=== PATIENT | female | born 1980 | race Caucasian/White ===

== ENCOUNTER 2017-02-18 01:56 | Emergency (ER) | payer MEDICAID ==
[2017-02-18 02:00] VITALS: BP 117/70
[2017-02-18] MEDS ORDERED: IBUPROFEN 600 MG TABLET PO ONE (02:44)
[2017-02-18] MEDS ORDERED: LIDOCAINE 5% (700 MG) TRANSDERMAL ADH..PATCH TP ONE (02:44)
--- NOTE | 2017-02-18 03:16 | RADIOLOGY REPORT (SQ) ---
EXAM DESCRIPTION: CHEST PA/LAT COMPLETED DATE/TIME: 02/18/2017 3:04 am REASON FOR STUDY: rib pain COMPARISON: None. EXAM PARAMETERS: NUMBER OF VIEWS: two views TECHNIQUE: Digital Frontal and Lateral radiographic views of the chest acquired. RADIATION DOSE: NA LIMITATIONS: none FINDINGS: LUNGS AND PLEURA: No opacities, masses or pneumothorax. No pleural effusion. MEDIASTINUM AND HILAR STRUCTURES: No masses or contour abnormalities. HEART AND VASCULAR STRUCTURES: Heart normal size. No evidence for failure. BONES: No acute findings. HARDWARE: None in the chest. OTHER: No other significant finding. IMPRESSION: NO SIGNIFICANT RADIOGRAPHIC FINDING IN THE CHEST. TECHNICAL DOCUMENTATION: JOB ID: [id number] [email or web address]- All Rights Reserved
--- NOTE | 2017-02-18 03:38 | ER Document Report ---
ED General - General Chief Complaint: Rib Pain Stated Complaint: RIB PAIN Time Seen by Provider: 02/18/17 02:43 Notes: Patient is a 36-year-old female who presents after falling out of her bathtub striking her right ribs after she fell out of her tub hitting her right lower ribs on a toilet. States that since that time she has had a severe, constant, throbbing pain to the area. Worsened by movement or breathing. Denies a history of similar injury in the past. She has not tried anything to improve her pain. She denies any hemoptysis, shortness of breath, head or neck trauma. She has not seen her primary doctor regarding today's concerns. Denies any additional injuries or concerns. TRAVEL OUTSIDE OF THE [place] IN LAST 30 DAYS: No - Related Data Allergies/Adverse Reactions: sumatriptan [From Imitrex] Allergy (Verified 02/18/17 01:58) Home Medications: Current Home Medications Alprazolam [Xanax 0.5 mg Tablet] ASDIR PRN 02/18/17 [History] Amphetamine Sulfate [Evekeo] 20 mg PO QAM 02/18/17 [History] Gabapentin [Gabapentin] ASDIR PRN 02/18/17 [History] Rizatriptan Benzoate [Rizatriptan] ASDIR PRN 02/18/17 [History] Sertraline HCl [Sertraline HCl] ASDIR PRN 02/18/17 [History] Tizanidine HCl [Tizanidine HCl] ASDIR PRN 02/18/17 [History] Tramadol HCl [Tramadol HCl] ASDIR PRN 02/18/17 [History] Zolpidem Tartrate [Zolpidem Tartrate ER] 12.5 mg PO QHS 02/18/17 [History] Past Medical History - General Information source: Patient - Social History Smoking Status: Current Every Day Smoker Frequency of alcohol use: None Drug Abuse: None Family History: Reviewed & Not Pertinent Patient has suicidal ideation: No Patient has homicidal ideation: No Renal/ Medical History: Denies: Hx Peritoneal Dialysis Past Surgical History: Reports: Hx Section Review of Systems - Review of Systems Notes: Constitutional: Negative for fever. Eyes: Negative for visual changes. ENT: Negative for facial injury Cardiovascular: Positive for chest injury. Respiratory: Negative for shortness of breath. Gastrointestinal: Negative for abdominal injury. Genitourinary: Negative for genital injury Musculoskeletal: Negative for back injury. Skin: Negative for laceration/abrasions. Neurological: Negative for head injury. Physical Exam - Vital signs Vitals: Temp Pulse Resp BP Pulse Ox 99.0 F 70 18 117/70 98 02/18/17 01:58 02/18/17 01:58 02/18/17 01:58 02/18/17 01:58 02/18/17 01:58 Interpretation: Normal Notes: PHYSICAL EXAMINATION: GENERAL: Well-appearing, no acute distress. HEAD: Atraumatic, normocephalic. EYES: Pupils equal round and reactive to light, extraocular movements intact, sclera anicteric, conjunctiva are normal. ENT: nares patent, no oral pharyngeal trauma. No hemotympanum, no Alexandre's sign , no raccoon eyes. NECK: No midline cervical spine tenderness. Patient able to move their head to 45 bilaterally without any discomfort. LUNGS: Breath sounds clear to auscultation bilaterally and equal. No wheezes rales or rhonchi. HEART: Regular rate and rhythm without murmurs. CHEST WALL: No bruising over the lower right ribs. Pain on palpation of the affected area ABDOMEN: Soft, nontender, normoactive bowel sounds. No guarding, no rebound. No abdominal bruising EXTREMITIES: Normal range of motion, no pitting or edema. No long bone deformities. BACK: No midline spinal tenderness, step-offs, or deformities. NEUROLOGICAL: Moves all extremities spontaneously and on command PSYCH: Normal mood, normal affect. SKIN: Warm, Dry, normal turgor, no rashes or lesions noted. Course - Re-evaluation Re-evalutation: 02/18/17 03:37 Patient presents after falling onto their ribs, complaining of focal pain to the affected area. No tachypnea or hypoxemia at time of arrival. Pain controlled here in the emergency department with narcotic and anti-inflammatory analgesics. Chest x-ray without evidence of acute fracture, pneumothorax or pulmonary contusion. At this time will discharge with return precautions and follow-up recommendations. Verbal discharge instructions given at the bedside and opportunity for questions given. Medication warnings reviewed. Patient is in agreement with this plan and has verbalized understanding of return precautions and the need for primary care follow-up in the next 24-72 hours. - Vital Signs Vital signs: Temp Pulse Resp BP Pulse Ox 99.0 F 70 18 117/70 98 02/18/17 01:58 02/18/17 01:58 02/18/17 01:58 02/18/17 01:58 02/18/17 01:58 - Diagnostic Test Radiology reviewed: Image reviewed, Reports reviewed Radiology results interpreted by me: 02/18/17 03:50 Chest x-ray: No acute rib fractures or pneumothorax Discharge - Discharge Clinical Impression: Rib pain Condition: Good Disposition: HOME, SELF-CARE Additional Instructions: Your chest wall pain is due to bruising of your ribs. This pain can last for up to 6 weeks. It is very important that you continue to take purposeful deep breaths. For your pain: Continue to take ibuprofen 600 mg every 6 hours or Tylenol 1000 mg every 6 hours. Apply local lidocaine to the area per bottle instructions. There is a product sold [id number] called "Aspercreme with lidocaine" that you can use for this purpose. Please follow-up with her primary care doctor in the next 2-3 days. Return to the emergency department immediately if you develop worsening shortness of breath, increased pain, begin coughing blood, pass out, or have any other symptoms that are worrisome to you. Referrals: ANDREA CID, [Primary Care Provider] - Follow up as needed
[2017-02-18] MEDS ORDERED: MORPHINE SULFATE IR 15 MG TABLET PO ONE (03:47)
[2017-02-18] MEDS ORDERED: ACETAMINOPHEN 325 MG TABLET PO ONE (03:47)
== END 2017-02-18 03:54 | disposition home or self-care (01) ==
LOC: ER 01:56
DX: R07.81 Pleurodynia (principal); F17.200 Nicotine dependence, unspecified, uncomplicated; W01.10XA Fall on same level from slipping, tripping and stumbling with subsequent striking against unspecified object, initial encounter; Y93.E1 Activity, personal bathing and showering; Y92.009 Unspecified place in unspecified non-institutional (private) residence as the place of occurrence of the external cause
CPT/HCPCS: 99283; 71020; J3490 ×3

== ENCOUNTER 2017-05-15 03:24 | Emergency (ER) | payer MEDICAID ==
[2017-05-15] MEDS ORDERED: LEVETIRACETAM 500 MG/NACL-ISO 500 MG/100 ML RTUPB IV ONE (03:35)
[2017-05-15] MEDS ORDERED: NORMAL SALINE 1000 ML 1,000 ML IV ONE (03:39)
--- NOTE | 2017-05-15 03:41 | ER Document Report ---
ED Seizure - General Chief Complaint: Probable Seizure Stated Complaint: POSSIBLE SEIZURE Time Seen by Provider: 05/15/17 03:31 Notes: Patient is a 36-year-old female that comes emergency department for chief complaint of seizure. Patient was transported by EMS, they report that patient' s mother noticed the patient had 2 seizures while she was lying on the couch. Patient states that she remembers lying on the couch and then woke up with a headache but denies any other knowledge of any other symptoms or events. She takes medications including Maxalt, Zanaflex, Xanax, Neurontin, states she is treated for migraines, anxiety, depression. She denies any fever, vomiting, or any other complaints. - Related Data Allergies/Adverse Reactions: sumatriptan [From Imitrex] Allergy (Verified 02/18/17 01:58) Past Medical History - General Information source: Patient - Social History Smoking Status: Current Every Day Smoker Chew tobacco use (# tins/day): No Frequency of alcohol use: None Drug Abuse: None Lives with: Family Family History: Reviewed & Not Pertinent Patient has suicidal ideation: No Patient has homicidal ideation: No Neurological Medical History: Reports: Hx Migraine Renal/ Medical History: Denies: Hx Peritoneal Dialysis Psychiatric Medical History: Reports: Hx Anxiety Past Surgical History: Reports: Hx Section - Immunizations Immunizations up to date: Yes Hx Diphtheria, Pertussis, Tetanus Vaccination: Yes Review of Systems - Review of Systems Constitutional: No symptoms reported EENT: No symptoms reported Cardiovascular: No symptoms reported Respiratory: No symptoms reported Gastrointestinal: No symptoms reported Genitourinary: No symptoms reported Female Genitourinary: No symptoms reported Musculoskeletal: No symptoms reported Skin: No symptoms reported Hematologic/Lymphatic: No symptoms reported Neurological/Psychological: See HPI Physical Exam - Vital signs Vitals: Temp Resp Pulse Ox 98.3 F 13 95 05/15/17 03:29 05/15/17 03:29 05/15/17 03:29 Interpretation: Normal - General General appearance: Appears well, Alert In distress: None - Patient sleeping and easily aroused - HEENT Head: Normocephalic, Atraumatic Eyes: Normal Conjunctiva: Normal Extraocular movements intact: Yes Eyelashes: Normal Pupils: PERRL Nasal: Normal Mouth/Lips: Normal Mucous membranes: Normal Pharynx: Normal Neck: Normal - Respiratory Respiratory status: No respiratory distress Chest status: Nontender Breath sounds: Normal. No: Decreased air movement, Wheezing Chest palpation: Normal - Cardiovascular Rhythm: Regular. No: Tachycardia Heart sounds: Normal auscultation, S1 appreciated, S2 appreciated Murmur: No - Abdominal Inspection: Normal Distension: No distension Bowel sounds: Normal Tenderness: Nontender. No: Tender, Guarding Organomegaly: No organomegaly - Back Back: Normal, Nontender. No: Tender - Extremities General upper extremity: Normal inspection, Nontender, Normal strength, Normal temperature General lower extremity: Normal inspection, Nontender, Normal strength, Normal temperature - Neurological Neuro grossly intact: Yes Cognition: Normal Orientation: AAOx4 Carlin Coma Scale Eye Opening: Spontaneous Amado Coma Scale Verbal: Oriented Carlin Coma Scale Motor: Obeys Commands Carlin Coma Scale Total: 15 Speech: Normal Cranial nerves: Normal Cerebellar coordination: Normal Motor strength normal: LUE, RUE, LLE, RLE Additional motor exam normals: Equal rn nursery Sensory: Normal - Psychological Associated symptoms: Normal affect, Normal mood - Skin Skin Temperature: Warm Skin Moisture: Dry Skin Color: Normal Course - Re-evaluation Re-evalutation: EMS reports the patient had a seizure about 1 month ago but has not seen neurology. Patient denies this, she states that she had a weird episode but she remembers the whole thing no she was not having a seizure. She states tonight was very different, she states that she does not remember the event her mother was describing and she just woke up with a headache. Patient actually did appear postictal on initial evaluation, mildly, on reevaluation she is much more alert and conversational. CBC shows mild leukocytosis, this is nonspecific, patient was initially mildly tachycardic but she was given IV fluids and this resolved. Soft abdomen, clear lungs, normal neurological exam, normal ENT exam, normal skin exam. Urinalysis unremarkable. Chemistry shows hypoglycemia, generally unremarkable. Magnesium unremarkable. Alcohol negative. Discussed results with patient. Discussed potentially doing a CAT scan, after discussion this was declined, patient states she will follow-up with neurology for management and workup. Discussed Diastat, she declined this, she does state that she will be evaluated by a neurologist. She states she does not drive. I discussed seizure precautions with patient, follow-up recommendations , return precautions in detail. Patient states understanding and agreement. - Vital Signs Vital signs: Temp Pulse Resp BP Pulse Ox 98.7 F 16 127/93 H 96 05/15/17 05:23 05/15/17 05:01 05/15/17 05:00 05/15/17 05:01 - Laboratory Result Diagrams: 05/15/17 03:55 05/15/17 03:55 Laboratory results interpreted by me: 05/15/17 05/15/17 05/15/17 03:55 03:55 04:07 WBC 14.0 H MCH 26.9 L RDW 16.6 H Absolute Neutrophils 10.3 H Potassium 3.5 L Glucose 73 L Urine Protein 30 H Urine Blood SMALL H Discharge - Discharge Clinical Impression: Seizure-like activity Condition: Stable Disposition: HOME, SELF-CARE Additional Instructions: Your evaluation and symptoms are suggestive of a seizure. Please follow-up with the neurology referral for additional evaluation. Perform seizure precautions including not using a bath time, not swimming alone, etc. Return for any concerning or worsening symptoms including return seizures, fever , or any other concerning symptoms. Seizure You have had a seizure. Seizure disorders (epilepsy) of one sort or another affect about one out of 50 people. The seizure occurs because of abnormal electrical activity in the brain. Seizures may be due to drugs and alcohol, strokes, brain injury, or infection. In the most common form of epilepsy, no cause can be found. You will require further evaluation to determine the cause of your seizure, and to determine whether anti-seizure medication is required. This follow-up testing is important, so please call us if you encounter problems with scheduling of tests or appointments. YOU SHOULD NOT DRIVE until released to do so by your physician. The law requires that seizures be reported to the automobile drivers's license bureau--a seizure while driving could be catastrophic. Call the doctor if seizures recur, or if you develop new symptoms such as fever, severe headache, stiff neck, confusion or increasing sleepiness, weakness or numbness, or visual problems. Referrals: MELISSA SMITH MD [ACTIVE STAFF] - Follow up tomorrow
[2017-05-15 04:05] LABS: ABSOLUTE BASOPHILS # (AUTO) 0.1 10^3/uL (0.0-0.2); ABSOLUTE EOSINOPHILS # (AUTO) 0.1 10^3/uL (0.0-0.6); ABSOLUTE LYMPHOCYTES (AUTO) 2.6 10^3/uL (0.5-4.7); ABSOLUTE MONOCYTES (AUTO) 0.8 10^3/uL (0.1-1.4); ABSOLUTE NEUT (AUTO) 10.3 10^3/uL (1.7-8.2); BASOPHILS % (AUTO) 0.8 % (0-2); EOSINOPHILS % (AUTO) 0.8 % (0-6); HEMATOCRIT 37.5 % (36.0-47.0); HEMOGLOBIN 12.5 g/dL (12.0-15.5); LYMPHOCYTES % (AUTO) 18.9 % (13-45); MEAN CORPUSCULAR HEMOGLOBIN 26.9 pg (27.0-33.4); MEAN CORPUSCULAR HGB CONC 33.2 g/dL (32.0-36.0); MEAN CORPUSCULAR VOLUME 81 fl (80-97); MONOCYTES % (AUTO) 5.9 % (3-13); RED BLOOD COUNT 4.64 10^6/uL (3.72-5.28); RED CELL DISTRIBUTION WIDTH 16.6 % (11.5-14.0); SEGMENTED NEUTROPHILS % (AUTO) 73.6 % (42-78)
[2017-05-15 04:21] LABS: ALANINE AMINOTRANSFERASE 45 U/L (9-52); ALBUMIN 4.2 g/dL (3.5-5.0); ALKALINE PHOSPHATASE 90 U/L (38-126); ANION GAP 14 (5-19); ASPARTATE AMINO TRANSFERASE 30 U/L (14-36); BILIRUBIN,DIRECT 0.1 mg/dL (0.0-0.4); BILIRUBIN,TOTAL 0.3 mg/dL (0.2-1.3); BLOOD UREA NITROGEN 12 mg/dL (7-20); CALCIUM 9.8 mg/dL (8.4-10.2); CARBON DIOXIDE 24 mmol/L (22-30); CHLORIDE 106 mmol/L (98-107); CREATININE RESULT 0.89 mg/dL (0.52-1.25); GLUCOSE 73 mg/dL (75-110); MAGNESIUM 2.2 mg/dL (1.6-2.3); POTASSIUM 3.5 mmol/L (3.6-5.0)
[2017-05-15 04:23] LABS: ALCOHOL < 10 mg/dL (NONE DETECTED)
[2017-05-15 04:39] LABS: APPEARANCE,URINE CLOUDY; BILIRUBIN,URINE NEGATIVE (NEGATIVE); GLUCOSE, URINE NEGATIVE (NEGATIVE); KETONES,URINE NEGATIVE (NEGATIVE); LEUKOCYTE ESTERASE,URINE NEGATIVE (NEGATIVE); NITRITE,URINE NEGATIVE (NEGATIVE); PROTEIN,URINE 30 mg/dL (NEGATIVE); URINE SPECIFIC GRAVITY 1.018; UROBILINOGEN,URINE NEGATIVE mg/dL (<2.0)
[2017-05-15 05:18] VITALS: BP 127/93
== END 2017-05-15 05:25 | disposition home or self-care (01) ==
LOC: ER 03:24
DX: R29.90 Unspecified symptoms and signs involving the nervous system (principal); F41.9 Anxiety disorder, unspecified; F32.9 Major depressive disorder, single episode, unspecified; G43.909 Migraine, unspecified, not intractable, without status migrainosus; Z79.899 Other long term (current) drug therapy; F17.200 Nicotine dependence, unspecified, uncomplicated; Z88.6 Allergy status to analgesic agent; D72.829 Elevated white blood cell count, unspecified; R00.0 Tachycardia, unspecified
CPT/HCPCS: 99284; 96361; 96365; 36415; 80307; 83735; 84703; 85025; 80053; 81001; J7030; J1953

== ENCOUNTER 2017-07-17 22:46 | Emergency (ER) | payer MEDICAID ==
[2017-07-17] MEDS ORDERED: LEVETIRACETAM 500 MG TABLET PO ONE (22:52)
--- NOTE | 2017-07-17 22:54 | ER Document Report ---
ED General - General Stated Complaint: SEIZURE Time Seen by Provider: 07/17/17 22:50 Mode of Arrival: Medic Information source: Patient, Emergency Med Personnel Notes: 36-year-old female history of 2 previous seizure episodes for which she did come into the emergency department presents with complaints of seizure-like episode. Patient had 2 seizures at home, EMS was called and upon EMSs arrival patient was alert oriented however had a third seizure. EMS notes the patient had tonic-clonic like episode. Patient denies any pain or complaints at this time TRAVEL OUTSIDE OF THE [place] IN LAST 30 DAYS: No - HPI Onset: Just prior to arrival Onset/Duration: Sudden Quality of pain: No pain Severity: Mild Pain Level: Denies Associated symptoms: Slow to respond, Other Exacerbated by: Denies Relieved by: Denies Similar symptoms previously: Yes Recently seen / treated by doctor: Yes - Related Data Allergies/Adverse Reactions: sumatriptan [From Imitrex] Allergy (Verified 02/18/17 01:58) Past Medical History - Social History Smoking Status: Never Smoker Cigarette use (# per day): No Chew tobacco use (# tins/day): No Smoking Education Provided: No Family History: Reviewed & Not Pertinent Neurological Medical History: Reports: Hx Migraine Renal/ Medical History: Denies: Hx Peritoneal Dialysis Psychiatric Medical History: Reports: Hx Anxiety Past Surgical History: Reports: Hx Section - Immunizations Immunizations up to date: Yes Hx Diphtheria, Pertussis, Tetanus Vaccination: Yes Review of Systems - Review of Systems Notes: REVIEW OF SYSTEMS: CONSTITUTIONAL : Denies fever, chills, or sweats. Denies recent illness. EENT: Denies eye, ear, throat, or mouth pain or symptoms. Denies nasal or sinus congestion or discharge. Denies throat, tongue, or mouth swelling or difficulty swallowing. CARDIOVASCULAR: Denies chest pain. Denies palpitations or racing or irregular heart beat. Denies ankle edema. RESPIRATORY: Denies cough, cold, or chest congestion. Denies shortness of breath, difficulty breathing, or wheezing. GASTROINTESTINAL: Denies abdominal pain or distention. Denies nausea, vomiting , or diarrhea. Denies blood in vomitus, stools, or per rectum. Denies black, tarry stools. Denies constipation. GENITOURINARY: Denies difficulty urinating, painful urination, burning, frequency, blood in urine, or discharge. FEMALE GENITOURINARY: Denies vaginal bleeding, heavy or abnormal periods, irregular periods. Denies vaginal discharge or odor. MUSCULOSKELETAL: Denies back or neck pain or stiffness. Denies joint pain or swelling. SKIN: Denies rash, lesions or sores. HEMATOLOGIC : Denies easy bruising or bleeding. LYMPHATIC: Denies swollen, enlarged glands. NEUROLOGICAL: Admits to seizure episode PSYCHIATRIC: Denies anxiety or stress. Denies depression, suicidal ideation, or homicidal ideation. ALL OTHER SYSTEMS REVIEWED AND NEGATIVE. PHYSICAL EXAMINATION: GENERAL: Well-appearing, well-nourished and in no acute distress. HEAD: Atraumatic, normocephalic. EYES: Pupils equal round and reactive to light, extraocular movements intact, conjunctiva are normal. ENT: Nares patent, oropharynx clear without exudates. Moist mucous membranes. NECK: Normal range of motion, supple without lymphadenopathy LUNGS: Breath sounds clear to auscultation bilaterally and equal. No wheezes rales or rhonchi. HEART: Regular rate and rhythm without murmurs ABDOMEN: Soft, nontender, nondistended abdomen. No guarding, no rebound. No masses appreciated. Female : deferred Musculoskeletal: Normal range of motion, no pitting or edema. No cyanosis. NEUROLOGICAL: Cranial nerves grossly intact. Normal speech, normal gait. Normal sensory, motor exams PSYCH: Normal mood, normal affect. SKIN: Warm, Dry, normal turgor, no rashes or lesions noted. Dictation was performed using [email or web address] voice recognition software Physical Exam - Vital signs Vitals: Temp Pulse Resp BP Pulse Ox 99.5 F 109 H 18 112/73 96 07/17/17 22:55 07/17/17 22:55 07/17/17 22:55 07/17/17 22:55 07/17/17 22:55 Course - Re-evaluation Re-evalutation: 07/17/17 22:54 Patient overall looks well at this time, she has not been following up with a neurologist for further evaluation of her previous seizure, given that she has had multiple episodes today I will give her a loading dose of Keppra at this time 07/17/17 23:50 Patient was noted to have another seizure in the emergency department lasting a few seconds was given Versed immediately, she had just received her Keppra 07/18/17 00:33 Patient is resting comfortably 07/18/17 01:36 Patient has been watched and stable, I will discharge at this time with seizure precautions and follow-up with neurology After performing a Medical Screening Examination, I estimate there is LOW risk for ACUTE GLAUCOMA, TEMPORAL ARTERITIS, MENINGITIS, INCRANIAL HEMORRHAGE, or ISCHEMIC STROKE thus I consider the discharge disposition reasonable. I have reevaluated this patient multiple times and no significant life threatening changes are noted. The patient and I have discussed the diagnosis and risks, and we agree with discharging home with close follow-up with the understanding that symptoms and presentations can change. We also discussed returning to the Emergency Department immediately if new or worsening symptoms occur. We have discussed the symptoms which are most concerning (e.g., changing or worsening symptoms, new numbness or weakness, vomiting, fever) that necessitate immediate return. - Vital Signs Vital signs: Temp Pulse Resp BP Pulse Ox 99.5 F 109 H 18 112/73 96 07/17/17 22:55 07/17/17 22:55 07/17/17 22:55 07/17/17 22:55 07/17/17 22:55 - Laboratory Result Diagrams: 07/17/17 23:00 07/17/17 23:00 Laboratory results interpreted by me: 07/17/17 23:00 WBC 16.4 H MCH 26.4 L RDW 16.1 H Plt Count 459 H Seg Neutrophils % 83.7 H Lymphocytes % 11.5 L Absolute Neutrophils 13.7 H Discharge - Discharge Clinical Impression: Seizure Condition: Stable Disposition: HOME, SELF-CARE Instructions: New Seizure ([facility]) Additional Instructions: You have been given very strict seizure precautions, you are not allowed to drive until cleared by a neurologist Prescriptions: Levetiracetam [Keppra 500 mg Tablet] 1,000 mg PO Q12 30 Days #60 tablet Referrals: ANDREA CID DO [Primary Care Provider] - Follow up as needed MELISSA SMITH MD [ACTIVE STAFF] - Follow up tomorrow CAS QUINTANILLA MD [EMERITUS] - Follow up tomorrow
[2017-07-17 23:15] LABS: ABSOLUTE BASOPHILS # (AUTO) 0.1 10^3/uL (0.0-0.2); ABSOLUTE LYMPHOCYTES (AUTO) 1.9 10^3/uL (0.5-4.7); ABSOLUTE MONOCYTES (AUTO) 0.6 10^3/uL (0.1-1.4); ABSOLUTE NEUT (AUTO) 13.7 10^3/uL (1.7-8.2); BASOPHILS % (AUTO) 0.5 % (0-2); EOSINOPHILS % (AUTO) 0.3 % (0-6); HEMATOCRIT 41.2 % (36.0-47.0); HEMOGLOBIN 13.4 g/dL (12.0-15.5); LYMPHOCYTES % (AUTO) 11.5 % (13-45); MEAN CORPUSCULAR HEMOGLOBIN 26.4 pg (27.0-33.4); MEAN CORPUSCULAR HGB CONC 32.6 g/dL (32.0-36.0); MEAN CORPUSCULAR VOLUME 81 fl (80-97); PLATELET COUNT 459 10^3/uL (150-450); RED CELL DISTRIBUTION WIDTH 16.1 % (11.5-14.0); SEGMENTED NEUTROPHILS % (AUTO) 83.7 % (42-78); TOTAL CELLS COUNTED % (AUTO) 100 %; WHITE BLOOD COUNT 16.4 10^3/uL (4.0-10.5)
[2017-07-17] MEDS ORDERED: LORAZEPAM INJ 2 MG/1 ML VIAL ONE (23:27)
[2017-07-17 23:31] LABS: ALANINE AMINOTRANSFERASE 20 U/L (9-52); ALBUMIN 4.5 g/dL (3.5-5.0); ALKALINE PHOSPHATASE 73 U/L (38-126); ANION GAP 16 (5-19); ASPARTATE AMINO TRANSFERASE 19 U/L (14-36); BILIRUBIN,DIRECT 0.1 mg/dL (0.0-0.4); BILIRUBIN,TOTAL 0.2 mg/dL (0.2-1.3); BLOOD UREA NITROGEN 12 mg/dL (7-20); CALCIUM 9.8 mg/dL (8.4-10.2); CARBON DIOXIDE 22 mmol/L (22-30); CHLORIDE 105 mmol/L (98-107); GLUCOSE 84 mg/dL (75-110); POTASSIUM 4.1 mmol/L (3.6-5.0)
[2017-07-18] MEDS ORDERED: LORAZEPAM INJ 2 MG/1 ML VIAL IV ONE (00:22)
[2017-07-18 02:36] VITALS: BP 107/66
== END 2017-07-18 02:37 | disposition home or self-care (01) ==
LOC: ER 22:46
DX: R56.9 Unspecified convulsions (principal)
CPT/HCPCS: 99284; 96374; 36415; 85025; 80053; J2060; J3490